=== PATIENT | male | born 1975 | race Two or more races ===

== ENCOUNTER → 2024-09-22 | Outpatient (CLI) | payer OTHER, SELFPAY ==
--- NOTE | 2024-09-22 | XR_ITS ---
Examination: Hand, left 3 views Technique: Hand AP, oblique, lateral 3 views Date and time of exam: September 22, 2024 1126 hours INDICATIONS: Left hand fourth digit pain and swelling beginning 2 weeks ago. FINDINGS: Old chip fracture off the volar base middle phalanx third digit No acute fracture No cortical bone destruction No opaque foreign body IMPRESSION: No acute fracture
--- NOTE | 2024-09-22 | XR_ITS ---
Examination: Fingers, left hand fourth digit 3 views Technique: AP, oblique, lateral views left hand fourth digit. Exam date and time: September 22, 2024 1126 hours INDICATIONS: Left hand fourth digit pain and swelling 2 weeks. FINDINGS: No fracture or dislocation No foreign body IMPRESSION: No fracture or dislocation
== END | disposition home or self-care (01) ==
PROVIDERS: PCP Nurse Practitioner Family; Referring Provider Nurse Practitioner Family; Visit Provider Nurse Practitioner Family
DX: S69.92XA Unspecified injury of left wrist, hand and finger(s), initial encounter (principal); X58.XXXA Exposure to other specified factors, initial encounter
CPT/HCPCS: 73130; 73140

== ENCOUNTER → 2025-01-22 | Outpatient (CLI) | payer BC, SELFPAY ==
--- NOTE | 2025-01-22 | XR_ITS ---
EXAMINATION: Ankle, left 3 views . Technique: Ankle AP, oblique, lateral 3 views Date and time of exam: January 22, 2025, 1300 hours INDICATIONS: Injury to the ankle 2 days ago, ankle pain. FINDINGS: No fracture or dislocation. Advanced osteophyte arthritis tibiotalar joint IMPRESSION: No acute fracture
== END | disposition home or self-care (01) ==
PROVIDERS: PCP Nurse Practitioner Family; Referring Provider Nurse Practitioner Family; Visit Provider Nurse Practitioner Family
DX: S99.912A Unspecified injury of left ankle, initial encounter (principal); X58.XXXA Exposure to other specified factors, initial encounter
CPT/HCPCS: 73610